=== PATIENT | male | born 1955 | race Caucasian/White ===

== ENCOUNTER 2017-05-15 15:44 | Observation (INO) | payer OTHER ==
[~2017-05-15] VITALS: Ht 167.6 cm; Wt 77.3 kg
[2017-05-15] VITALS (8 sets, daily range): BP systolic 164–212; BP diastolic 53–111; PULSE 70–91; RESP 15–20; TEMP 97.3–98.5; O2SAT 97–98
[2017-05-15] MEDS ORDERED: NITROGLYCERIN 0.4 MG SL 25 TABS/BTL SL ONE (15:57)
[2017-05-15] MEDS ORDERED: SODIUM CHLORIDE 0.9% FLUSH 10 ML FLUSH IVF PRN (16:00)
[2017-05-15] MEDS ORDERED: SODIUM CHLORID 0.9% 500 ML INJ 500 ML IV ONE (16:00)
[2017-05-15] MEDS ORDERED: ASPIRIN 81 MG CHEW TAB PO ONE (16:00)
[2017-05-15] MEDS: NITROGLYCERIN 0.4 MG SL 25 TABS/BTL SL SCH ×3 (16:00→16:15)
--- NOTE | 2017-05-15 16:11 | PD ---
HPI Chief Complaint: Chest Pain Time Seen by Provider: 16:00 Travel History International Travel<30 days: No Contact w/Intl Traveler<30days: No Traveled to known affect area: No History of Present Illness HPI Is a 61-year-old man who presents to the emergency department complaining of chest pain. He states this started about an hour or 2 ago. It is in the mid part of his chest. Skin constant but waxing and waning since onset. He's had some more mild pains intermittently in the past and thought was indigestion but his never had it this bad. He took some Rolaids to see if it would help which it did not. No nausea or vomiting. No shortness of breath. No clear exacerbating or alleviating factors. History Past Medical History Narrative Medical Reflux Treated for hypertension in the past Tetanus Vaccination: Unknown Influenza Vaccination: No Social History Alcohol Use: No Tobacco Use: No Allergies-Medications (Allergen,Severity, Reaction): Coded Allergies: No Known Allergies (Unverified , 05/15/17) Review of Systems Except as stated in HPI: all other systems reviewed are Neg Physical Exam Narrative GENERAL: Well-appearing 61-year-old man, little bit unwell, little bit diaphoretic. HEAD: Atraumatic. Normocephalic. EYES: Pupils equal and round. No scleral icterus. No injection or drainage. ENT: No nasal bleeding or discharge. Mucous membranes pink and moist. NECK: Trachea midline. No JVD. CARDIOVASCULAR: Regular rate and rhythm. No murmur appreciated. RESPIRATORY: No accessory muscle use. Clear to auscultation. Breath sounds equal bilaterally. GASTROINTESTINAL: Abdomen soft, non-tender, nondistended. Hepatic and splenic margins not palpable. MUSCULOSKELETAL: No obvious deformities. No edema. NEUROLOGICAL: Awake and alert. No obvious cranial nerve deficits. Motor grossly within normal limits. Normal speech. Data Data Last Documented VS Vital Signs Date Time Temp Pulse Resp B/P (MAP) Pulse Ox O2 Delivery O2 Flow Rate FiO2 05/15/17 16:00 98 Nasal Cannula 2.00 05/15/17 16:00 71 15 164/86 (112) 05/15/17 15:53 98.5 Orders Orders Nitroglycerin Sl (Nitrostat Sl) (05/15/17 15:57) Electrocardiogram (05/15/17 16:00) Complete Blood Count With Diff (05/15/17 16:00) Comprehensive Metabolic Panel (05/15/17 16:00) Magnesium (Mg) (05/15/17 16:00) Prothrombin Time / Inr (Pt) (05/15/17 16:00) Act Partial Throm Time (Ptt) (05/15/17 16:00) Troponin I (05/15/17 16:00) Lipase (05/15/17 16:00) Chest, Single Ap (05/15/17 16:00) Ecg Monitoring (05/15/17 16:00) Iv Access Insert/Monitor (05/15/17 16:00) Oximetry (05/15/17 16:00) Oxygen Administration (05/15/17 16:00) Aspirin Chew (Aspirin Chew) (05/15/17 16:00) Sodium Chloride 0.9% Flush (Ns Flush) (05/15/17 16:00) Nitroglycerin Sl (Nitrostat Sl) (05/15/17 16:00) Sodium Chlorid 0.9% 500 Ml Inj (Ns 500 M (05/15/17 16:00) Labs Laboratory Tests Test 05/15/17 15:55 White Blood Count 8.7 TH/MM3 Red Blood Count 5.12 MIL/MM3 Hemoglobin 15.9 GM/DL Hematocrit 45.1 % Mean Corpuscular Volume 88.0 FL Mean Corpuscular Hemoglobin 31.1 PG Mean Corpuscular Hemoglobin Concent 35.4 % Red Cell Distribution Width 13.3 % Platelet Count 198 TH/MM3 Mean Platelet Volume 7.8 FL Neutrophils (%) (Auto) 66.4 % Lymphocytes (%) (Auto) 23.6 % Monocytes (%) (Auto) 8.1 % Eosinophils (%) (Auto) 1.5 % Basophils (%) (Auto) 0.4 % Neutrophils # (Auto) 5.8 TH/MM3 Lymphocytes # (Auto) 2.1 TH/MM3 Monocytes # (Auto) 0.7 TH/MM3 Eosinophils # (Auto) 0.1 TH/MM3 Basophils # (Auto) 0.0 TH/MM3 CBC Comment DIFF FINAL Differential Comment Prothrombin Time 10.5 SEC Prothromb Time International Ratio 1.0 RATIO Activated Partial Thromboplast Time 25.7 SEC Blood Urea Nitrogen 25 MG/DL Creatinine 1.06 MG/DL Random Glucose 116 MG/DL Total Protein 7.7 GM/DL Albumin 4.1 GM/DL Calcium Level 9.1 MG/DL Magnesium Level 2.5 MG/DL Alkaline Phosphatase 71 U/L Aspartate Amino Transf (AST/SGOT) 17 U/L Alanine Aminotransferase (ALT/SGPT) 33 U/L Total Bilirubin 1.0 MG/DL Sodium Level 141 MEQ/L Potassium Level 3.9 MEQ/L Chloride Level 106 MEQ/L Carbon Dioxide Level 28.6 MEQ/L Anion Gap 6 MEQ/L Estimat Glomerular Filtration Rate 72 ML/MIN Troponin I LESS THAN 0.02 NG/ML Lipase 294 U/L [facility] Medical Decision Making Medical Screen Exam Complete: Yes Emergency Medical Condition: Yes Interpretation(s) My review of EKG: Normal sinus rhythm at a rate of 83, normal axis, normal intervals no ischemia. LABS: CBC is unremarkable. CMP is unremarkable, mildly elevated BUN Troponin negative Lipase normal UA unremarkable Chest x-ray: Negative. Differential Diagnosis Chest pain, ACS, pancreatitis, hepatobiliary disease, gastritis, other Narrative Course Medical decision-making 61-year-old man who presents emergent department with chest pain. Looks well. Symptoms been off-and-on for a little bit. No clear exacerbating or relieving factors. Moderate risk for ACS. Treated for hypertension in the past. Looks well now. Will give aspirin, nitroglycerin, check EKG, labs, x-ray, likely chest pain Center.. Diagnosis Primary Impression: Chest pain Admitting Information Admitting Physician Requests: Davon Venegas MD May 15, 2017 16:11
[2017-05-15 16:32] LABS: AUTOMATED NEUTROPHIL # 5.8 TH/MM3 (1.8-7.7); BASOPHIL % 0.4 % (0.0-2.0); EOSINOPHIL # 0.1 TH/MM3 (0-0.4); EOSINOPHIL % 1.5 % (0.0-4.0); HEMATOCRIT 45.1 % (39.0-51.0); HEMO FLAGS DIFF FINAL; LYMPH % 23.6 % (9.0-44.0); LYMPHOCYTE # 2.1 TH/MM3 (1.0-4.8); MEAN CORPUSCULAR HEMOGLOBIN 31.1 PG (27.0-34.0); MEAN CORPUSCULAR HGB CONC 35.4 % (32.0-36.0); MONO % 8.1 % (0.0-8.0); NEUT % 66.4 % (16.0-70.0); PLATELET COUNT 198 TH/MM3 (150-450); RED BLOOD COUNT 5.12 MIL/MM3 (4.50-5.90); RED CELL DISTRIBUTION WIDTH 13.3 % (11.6-17.2); WHITE BLOOD COUNT 8.7 TH/MM3 (4.0-11.0)
[2017-05-15 16:37] LABS: APTT (PATIENT) 25.7 SEC (24.3-30.1); PROTHROMBIN TIME - PATIENT 10.5 SEC (9.8-11.6)
[2017-05-15 16:50] LABS: ANION GAP 6 MEQ/L (5-15); AST (GOT) 17 U/L (15-37); BICARBONATE 28.6 MEQ/L (21.0-32.0); BLOOD UREA NITROGEN 25 MG/DL (7-18); CHLORIDE 106 MEQ/L (98-107); GLOMERULAR FILTRATION RATE 72 ML/MIN (>89); MAGNESIUM 2.5 MG/DL (1.5-2.5); POTASSIUM 3.9 MEQ/L (3.5-5.1); SODIUM (NA) 141 MEQ/L (136-145)
--- NOTE | 2017-05-15 16:52 | RADRPT ---
EXAM DATE/TIME: 05/15/2017 16:35 [facility] COMPARISON: No previous studies available for comparison. INDICATIONS : Chest pain since this afternoon. MEDICAL HISTORY : Hypertension. SURGICAL HISTORY : None. ENCOUNTER: Initial ACUITY: 1 day PAIN SCORE: 8/10 LOCATION: Bilateral chest FINDINGS: A single view of the chest demonstrates the lungs to be symmetrically aerated without evidence of mas s, infiltrate or effusion. The cardiomediastinal contours are unremarkable. Osseous structures are intact. CONCLUSION: No acute disease. José Zamudio MD on May 15, 2017 at 16:50 Board Certified Radiologist. This report was verified electronically.
[2017-05-15 17:05] LABS: ALKALINE PHOSPHATASE 71 U/L (45-117); ALT (GPT) 33 U/L (12-78)
[2017-05-15] MEDS ORDERED: SODIUM CHLORIDE 0.9% FLUSH 10 ML FLUSH IV FLUSH PRN (17:15)
[2017-05-15] MEDS ORDERED: NITROGLYCERIN 2% OINT 1 GM PACKET TOPICAL ONE (17:30)
[2017-05-15 18:47] LABS: CREATINE KINASE 78 U/L (39-308)
[2017-05-15] MEDS ORDERED: FAMOTIDINE INJ 20 MG in SODIUM CHLORIDE 0.9% INJ 98 ML IV STA (18:48)
[2017-05-15] MEDS ORDERED: ONDANSETRON HCL 4 MG/2 ML VIAL IV PUSH ONE (19:00)
[2017-05-15] MEDS ORDERED: MORPHINE SULFATE 4 MG/ML INJ IV PUSH ONE (19:00)
[2017-05-15] MEDS ORDERED: LIDOCAINE VISCOUS 2% SOLN 15 ML UDC PO ONE (19:15)
[2017-05-15] MEDS ORDERED: LISINOPRIL 10 MG TAB PO ONE (19:15)
[2017-05-15] MEDS ORDERED: ONDANSETRON HCL 4 MG/2 ML VIAL IV PRN (19:15)
[2017-05-15] MEDS ORDERED: ACETAMINOPHEN/HYDROcodone 325 MG/7.5 MG TAB PO PRN (19:15)
[2017-05-15] MEDS ORDERED: SODIUM CHLORIDE 0.9% FLUSH 5 ML FLUSH IVF PRN (19:15)
[2017-05-15] MEDS ORDERED: cloNIDine HCL 0.1 MG TAB PO PRN (19:15)
[2017-05-15] MEDS ORDERED: ATROPINE/SCOPOLAM/HYOSCYAM/PB ELIXIR 10 ML CUP PO ONE (19:15)
[2017-05-15] MEDS ORDERED: ALUMINUM/MAGNESIUM/SIMETH 30 ML CUP PO ONE (19:15)
[2017-05-15] MEDS ORDERED: ACETAMINOPHEN 500 MG CPLT PO PRN (19:15)
--- NOTE | 2017-05-15 19:28 | HHI.HP ---
HPI Primary Care Physician Unknown Chief Complaint Chest pain History of Present Illness This is a 61-year-old male that presents to the ED via private vehicle with a complaint of chest discomfort. Patient states he's had somewhat similar type of discomforts for a few years occurring about every 6 months or so. Usually lasting 5 minutes or so. Uses discomfort rated as a 1-2 out of 10. States the discomfort is never exertional. Today the discomfort was much worse. He states about 20 minutes after eating a turkey sandwich he developed an 8-9 out of 10 pressure in the center of his chest that also made him diaphoretic. There is no shortness of breath or nausea. He tried taking Rolaids which did not help. He does it history of heartburn and takes Protonix for it but states it really has not been bothering him. It does not feel like his typical heartburn. Patient blood pressure was also elevated upon arrival in the ED was systolic 217 however patient states he has had high blood pressure since 1979. Denies recent illness. Denies fevers or chills. Cannot recall prior stress testing. Review of Systems General: Patient denies fevers, chills recent, and recent travel HEENT: Patient denies headache, sore throat, difficulty swallowing. Cardiovascular: Has the chest discomfort as mentioned above. Denies sensation of heart beating rapidly or irregularly. No syncope. He was diaphoretic today. Respiratory: Denies shortness of breath or inspirational chest discomfort. Denies coughing wheezing or hemoptysis. GI: Patient denies nausea, vomiting, diarrhea, abdominal pain, bloody stools. Musculoskeletal: Patient denies joint pain or edema. Denies calf pain or edema. Neurovascular: Patient denies numbness, tingling, weakness in extremities. Denies headache. Endocrine: Denies polyuria and polydipsia. Hematologic: Denies easy bruising. Skin: Denies rash or itching. Past Family Social History Allergies: Coded Allergies: No Known Allergies (Unverified , 05/15/17) Past Medical History Hypertension in 1979 but states since then he has been normotensive. GERD. Denies hyperlipidemia, diabetes, and known CAD. Past Surgical History Umbilical hernia repair. Active Ordered Medications Current Medications Medications (Trade) Dose Ordered Sig/Tip Route Start Time Stop Time Status Last Admin (NS Flush) 2 ml UNSCH PRN IVF 05/15/17 16:00 (NS Flush) 2 ml UNSCH PRN IV FLUSH 05/15/17 17:15 (NS Flush) 2 ml BID IV FLUSH 05/15/17 21:00 Famotidine 20 mg/ Sodium Chloride 100 ml @ 4 mls/hr STAT STAT IV 05/15/17 18:48 05/16/17 19:47 Family History States his father had CAD with a CABG in his 60s. The past away at age 77 secondary to renal failure. Social History Patient essentially is a lifetime nonsmoker. States he smoked for 6 months at age 17. Has an occasional beer. Denies illicit drugs. He is . Physical Exam Vital Signs Vital Signs Date Time Temp Pulse Resp B/P (MAP) Pulse Ox O2 Delivery O2 Flow Rate FiO2 05/15/17 18:38 71 18 172/90 (117) 98 Nasal Cannula 2.00 05/15/17 18:35 97 Nasal Cannula 2.00 05/15/17 17:44 70 15 183/86 (118) 97 Nasal Cannula 2.00 05/15/17 16:00 98 Nasal Cannula 2.00 05/15/17 16:00 71 15 164/86 (112) 05/15/17 15:57 84 15 98 Nasal Cannula 2.00 05/15/17 15:53 98.5 91 15 184/111 (135) 97 05/15/17 15:47 98.3 88 20 212/106 (141) 98 Room Air Physical Exam GENERAL: This is a well-nourished, well-developed patient, in no apparent distress. Patient speaks in clear complete sentences. Patient is pleasant. HEENT: Head is atraumatic and normocephalic. Neck is supple without lymphadenopathy and trachea is midline. No JVD or carotid bruits. CARDIOVASCULAR: Regular rate and rhythm without murmurs, gallops, or rubs. RESPIRATORY: Clear to auscultation. Breath sounds equal bilaterally. No wheezes , rales, or rhonchi. Chest wall is nontender. No use of accessory muscles. GASTROINTESTINAL: Abdomen is nontender, nondistended. Abdomen soft. No obvious pulsatile mass or bruit. No CVA tenderness. Strong femoral pulses bilaterally. Normal bowel sounds in all quadrants. MUSCULOSKELETAL: Patient is moving upper and lower extremities freely. No calf tenderness or edema, no Homans sign. Strong pulses in upper and lower extremities. NEUROLOGICAL: Patient is alert and oriented. Cranial nerves 2-12 are grossly intact. No focal deficits and speech is clear. SKIN: No rash and turgor is normal. Laboratory Laboratory Tests Test 05/15/17 15:55 05/15/17 17:30 White Blood Count 8.7 Red Blood Count 5.12 Hemoglobin 15.9 Hematocrit 45.1 Mean Corpuscular Volume 88.0 Mean Corpuscular Hemoglobin 31.1 Mean Corpuscular Hemoglobin Concent 35.4 Red Cell Distribution Width 13.3 Platelet Count 198 Mean Platelet Volume 7.8 Neutrophils (%) (Auto) 66.4 Lymphocytes (%) (Auto) 23.6 Monocytes (%) (Auto) 8.1 Eosinophils (%) (Auto) 1.5 Basophils (%) (Auto) 0.4 Neutrophils # (Auto) 5.8 Lymphocytes # (Auto) 2.1 Monocytes # (Auto) 0.7 Eosinophils # (Auto) 0.1 Basophils # (Auto) 0.0 CBC Comment DIFF FINAL Differential Comment Prothrombin Time 10.5 Prothromb Time International Ratio 1.0 Activated Partial Thromboplast Time 25.7 Blood Urea Nitrogen 25 Creatinine 1.06 Random Glucose 116 Total Protein 7.7 Albumin 4.1 Calcium Level 9.1 Magnesium Level 2.5 Alkaline Phosphatase 71 Aspartate Amino Transf (AST/SGOT) 17 Alanine Aminotransferase (ALT/SGPT) 33 Total Bilirubin 1.0 Sodium Level 141 Potassium Level 3.9 Chloride Level 106 Carbon Dioxide Level 28.6 Anion Gap 6 Estimat Glomerular Filtration Rate 72 Troponin I LESS THAN 0.02 LESS THAN 0.02 Lipase 294 Total Creatine Kinase 78 Result Diagram: 05/15/17 1555 05/15/17 1555 Imaging Last 24 hours Impressions Chest X-Ray 05/15/17 1600 Signed Impressions: Service Date/Time: Monday, May 15, 2017 16:35 - CONCLUSION: No acute disease. José Zamudio MD Course Initial EKG is sinus rhythm rate of [address] segment depressions or elevations. Caprini VTE Risk Assessment Caprini VTE Risk Assessment: No/Low Risk (score <= 1) Caprini Risk Assessment Model Point Value = 1 Point Value = 2 Point Value = 3 Point Value = 5 Age 41-60 Minor surgery BMI > 25 kg/m2 Swollen legs Varicose veins or History of unexplained or recurrent spontaneous Oral contraceptives or hormone replacement Sepsis (< 1 month) Serious lung disease, including pneumonia (< 1 month) Abnormal pulmonary function Acute myocardial infarction Congestive heart failure (< 1 month) History of inflammatory bowel disease Medical patient at bed rest Age 61-74 Arthroscopic surgery Major open surgery (> 45 min) Laparoscopic surgery (> 45 min) Malignancy Confined to bed (> 72 hours) Immobilizing plaster cast Central venous access Age >= 75 History of VTE Family history of VTE Factor V Leiden Prothrombin [id number] Lupus anticoagulant Anticardiolipin antibodies Elevated serum homocysteine Heparin-induced thrombocytopenia Other congenital or acquired thrombophilia Stroke (< 1 month) Elective arthroplasty Hip, pelvis, or leg fracture Acute spinal cord injury (< 1 month) Prophylaxis Regimen Total Risk Factor Score Risk Level Prophylaxis Regimen 0-1 Low Early ambulation 2 Moderate Order ONE of the following: *Sequential Compression Device (SCD) *Heparin 5000 units SQ BID 3-4 Higher Order ONE of the following medications: *Heparin 5000 units SQ TID *Enoxaparin/Lovenox 40 mg SQ daily (WT < 150 kg, CrCl > 30 mL/min) *Enoxaparin/Lovenox 30 mg SQ daily (WT < 150 kg, CrCl > 10-29 mL/min) *Enoxaparin/Lovenox 30 mg SQ BID (WT < 150 kg, CrCl > 30 mL/min) AND/OR *Sequential Compression Device (SCD) 5 or more Highest Order ONE of the following medications: *Heparin 5000 units SQ TID (Preferred with Epidurals) *Enoxaparin/Lovenox 40 mg SQ daily (WT < 150 kg, CrCl > 30 mL/min) *Enoxaparin/Lovenox 30 mg SQ daily (WT < 150 kg, CrCl > 10-29 mL/min) *Enoxaparin/Lovenox 30 mg SQ BID (WT < 150 kg, CrCl > 30 mL/min) AND *Sequential Compression Device (SCD) Assessment and Plan Assessment and Plan * Chest pain: Patient will have serial cardiac enzymes and EKGs for ruling out purposes. He will be seen by Dr. Navas of cardiology in the chest pain center in the morning and likely proceed with stress testing. He'll be discharged home if stress testing is nonischemic. * GERD: Patient states this discomfort is different than his typical GERD. He was given IV Pepcid in the ED. We'll give him a GI cocktail. He will resume his Protonix. If this continues to be an issue he should follow-up with gastroenterology for endoscopy. * Hypertension: Patient states he has not been hypertensive and over 30 years however he has been during this hospitalization. We will start lisinopril. Have Catapres when necessary. Patient is stable at this time. He is agreeable to this plan Jaron Pettit May 15, 2017 19:28
[2017-05-15] MEDS ORDERED: SODIUM CHLORIDE 0.9% FLUSH 10 ML FLUSH IV FLUSH SCH (21:00)
[2017-05-15] MEDS ORDERED: SODIUM CHLORIDE 0.9% FLUSH 5 ML FLUSH IVF SCH (21:00)
[2017-05-15 23:15] LABS: CREATINE KINASE 58 U/L (39-308)
[2017-05-16] VITALS (8 sets, daily range): BP systolic 115–140; BP diastolic 56–76; PULSE 65–87; RESP 16–18; TEMP 98–99.2; O2SAT 93–96
[2017-05-16] MEDS ORDERED: PANTOPRAZOLE SOD 40 MG DELAYED RELEASE TAB PO SCH (09:00)
[2017-05-16] MEDS ORDERED: ASPIRIN 325 MG TAB PO SCH (09:00)
[2017-05-16] MEDS ORDERED: LISINOPRIL 10 MG TAB PO SCH (09:00)
--- NOTE | 2017-05-16 09:55 | HHI.DCPOC ---
Discharge Care Plan Diagnosis: (1) Hypertension (2) GERD (gastroesophageal reflux disease) (3) Chest pain Goals to Promote Your Health * To prevent worsening of your condition and complications * To maintain your health at the optimal level Directions to Meet Your Goals Take your medications as prescribed Follow your dietary instruction Follow activity as directed Keep your appointments as scheduled Take your immunizations and boosters as scheduled If your symptoms worsen call your PCP, if no PCP go to Urgent Care Center or Emergency Room Smoking is Dangerous to Your Health. Avoid second hand smoke Call the 24-hour hour crisis hotline for domestic abuse at Jaron Pettit May 16, 2017 09:55
[2017-05-16] MEDS ORDERED: PANT40TA3 PO (09:57)
[2017-05-16] MEDS ORDERED: LISI10TA3 PO (09:57)
--- NOTE | 2017-05-16 10:16 | EKG ---
Date Performed: 05/15/2017 Time Performed: 19:41:27 PTAGE: 61 years EKG: Sinus rhythm POSSIBLE RIGHT VENTRICULAR CONDUCTION DELAY BORDERLINE ECG NO SIG CHANGE PREVIOUS TRACING : 05/15/2017 15.53 DOCTOR: Sanjay Navas Interpretating Date/Time 05/16/2017 10:15:44
--- NOTE | 2017-05-16 10:16 | EKG ---
Date Performed: 05/15/2017 Time Performed: 21:48:54 PTAGE: 61 years EKG: Sinus rhythm INCOMPLETE RIGHT BUNDLE BRANCH BLOCK BORDERLINE ECG NO CHANGE PREVIOUS TRACING : 05/15/2017 19.41 DOCTOR: Sanjay Navas Interpretating Date/Time 05/16/2017 10:14:34
--- NOTE | 2017-05-16 10:17 | EKG ---
Date Performed: 05/15/2017 Time Performed: 15:53:23 PTAGE: 61 years EKG: Sinus rhythm POSSIBLE RIGHT VENTRICULAR CONDUCTION DELAY BORDERLINE ECG NO PREVIOUS TRACING DOCTOR: Sanjay Navsa Interpretating Date/Time 05/16/2017 10:15:57
--- NOTE | 2017-05-16 10:17 | TR ---
Date Performed: 05/16/2017 Time Performed: 08:14:27 DOCTOR: Sanjay Navas DRUG LIST: CLINICAL HISTORY: REASON FOR TEST: Chest pain REASON FOR ENDING: OBSERVATION: CONCLUSION: DOMONIQUE PROTOCOL. NO CP. TEST STOPPED AFTER EXCEEDING GOL HR SECONDARY TO SOB AND LEG FATIGUE.Maximum JE=957 % Max HR Achieved=89.0% Maximum KZ=929/110 Total Exercise Time=9:00 COMMENTS: Patient exercised using the Domonique protocol. No electrocardiographic changes were seen to suggest ischemia. Hemodynamic response to exercise was normal. No significant arrhythmia was prese nt.
== END 2017-05-16 16:56 | disposition home or self-care (01) ==
LOC: NEPC 15:44 → NEDA 17:15 → NEPFCDU 19:25
PROVIDERS: ADMIT Internal Medicine Interventional Cardiology; ATTEND Internal Medicine Interventional Cardiology
DX: I10 Essential (primary) hypertension (principal); R07.9 Chest pain, unspecified; K21.9 Gastro-esophageal reflux disease without esophagitis; R12 Heartburn; R94.31 Abnormal electrocardiogram [ECG] [EKG]; Z87.891 Personal history of nicotine dependence
CPT/HCPCS: 71010; 80053; 82550; 83690; 83735; 84484; 85025; 85610; 85730; 93005; 93017; 96374; 96375; 99285; G0378; J2270; J2405; J7040